=== PATIENT | female | born 1960 | race Caucasian/White ===

== ENCOUNTER 2020-06-03 10:29 | Outpatient (REF) | payer OTHER, SELFPAY ==
[2020-06-03 11:07] LABS: MANUAL DIFF FLAG NO
[2020-06-03 11:38] LABS: Anion Gap 11 (12-20); Blood Urea Nitrogen 17 mg/dL (9-16); Calcium 9.6 mg/dL (8.4-10.2); Carbon Dioxide 28 mmol/L (22-29); Chloride 106 mmol/L (96-108); Cholesterol 229 mg/dL; Estimated Glomerular Filt Rate > 60; Glucose Fasting 88 mg/dL (60-99); HDL Cholesterol 82 mg/dL; LDL Cholesterol Calculated 136 mg/dl; Sodium 141 mmol/L (135-145); Triglycerides 59 mg/dL
[2020-06-03 11:40] LABS: Basophils Percent Auto 1.4 % (0-2); Eosinophils Absolute Auto 0.1 X10*3/uL (0.0-0.4); Eosinophils Percent Auto 2.5 % (0-4); Hematocrit 38.9 % (37-47); Hemoglobin 13.2 g/dl (12.0-16.0); Lymphocytes Percent Auto 34.9 % (20-40); Mean Corpuscular HGB Conc 33.9 g/dl (31.0-35.0); Mean Corpuscular Volume 91.3 fL (80-98); Monocytes Absolute Auto 0.3 X10*3/uL (0.1-1.2); Monocytes Percent Auto 8.8 % (2-11); Neutrophils Absolute Auto 1.5 X10*3/uL (2.0-8.3); Neutrophils Percent Auto 52.4 % (45-73); Platelet Count 254 X10*3/uL (160-400); Red Blood Count 4.26 X10*6/uL (4.20-5.50); Red Cell Distribution Width 12.4 % (11.0-16.0); White Blood Count 2.8 X10*3/uL (4.8-10.8)
[2020-06-03 11:55] LABS: Thyroid Stimulating Hormone 1.37 mIU/mL (0.32-4.0); Vitamin D 25-OH Total 36.3 ng/mL (>30)
== END 2020-06-03 10:30 | disposition home or self-care (01) ==
LOC: HO.LAB 10:29
PROVIDERS: PCP Internal Medicine; Visit Provider Internal Medicine
DX: L30.9 Dermatitis, unspecified (principal); Z00.00 Encounter for general adult medical examination without abnormal findings; Z91.09 Other allergy status, other than to drugs and biological substances
CPT/HCPCS: 36415; 80048; 80061; 82306; 84443; 85025

== ENCOUNTER 2021-06-20 10:05 | Outpatient (REF) | payer OTHER, SELFPAY ==
[2021-06-20 10:17] LABS: MANUAL DIFF FLAG NO
[2021-06-20 10:45] LABS: Basophils Percent Auto 0.7 % (0-2); Eosinophils Absolute Auto 0.1 X10*3/uL (0.0-0.4); Eosinophils Percent Auto 1.7 % (0-4); Hematocrit 39.7 % (37-47); Hemoglobin 13.2 g/dl (12.0-16.0); Imm Gran Abs Auto 0.01 X10*3/uL (0.00-0.03); Imm Gran Pct Auto 0.2 % (0.0-0.4); Lymphocytes Percent Auto 24.5 % (20-40); Mean Corpuscular HGB Conc 33.2 g/dl (31.0-35.0); Mean Corpuscular Hemoglobin 30.1 pg (27.0-33.0); Mean Corpuscular Volume 90.6 fL (80-98); Mean Platelet Volume 10.4 fL (9.4-12.3); Monocytes Absolute Auto 0.2 X10*3/uL (0.1-1.2); Monocytes Percent Auto 5.9 % (2-11); Neutrophils Absolute Auto 2.7 X10*3/uL (2.0-8.3); Platelet Count 260 X10*3/uL (160-400); Red Blood Count 4.38 X10*6/uL (4.20-5.50); Red Cell Distribution Width 12.1 % (11.0-16.0)
[2021-06-20 11:00] LABS: Alanine Aminotransferase 13 U/L (0-31); Albumin Level 4.7 g/dL (3.5-5.0); Alkaline Phosphatase 54 U/L (39-117); Anion Gap 12 (12-20); Aspartate Amino Transferase 16 U/L (5-31); Bilirubin Total 1.2 mg/dL (0.0-1.0); Blood Urea Nitrogen 12 mg/dL (9-16); Carbon Dioxide 28 mmol/L (22-29); Chloride 106 mmol/L (96-108); Cholesterol 233 mg/dL; Estimated Glomerular Filt Rate > 60; Glucose Fasting 100 mg/dL (60-99); HDL Cholesterol 78 mg/dL; LDL Cholesterol Calculated 142 mg/dl; Potassium 4.2 mmol/L (3.3-5.1); Sodium 142 mmol/L (135-145); Total Protein 7.3 g/dL (6.5-8.0); Triglycerides 69 mg/dL
== END 2021-06-20 10:06 | disposition home or self-care (01) ==
LOC: HO.LAB 10:05
PROVIDERS: Visit Provider Internal Medicine
DX: Z00.00 Encounter for general adult medical examination without abnormal findings (principal); L30.9 Dermatitis, unspecified; Z91.09 Other allergy status, other than to drugs and biological substances
CPT/HCPCS: 36415; 80053; 80061; 85025

== ENCOUNTER → 2021-09-27 07:23 | Outpatient (BNVA) | payer OTHER, SELFPAY | PROVIDERS: PCP Internal Medicine; Visit Provider Physician Assistant ==

== ENCOUNTER 2021-12-25 10:30 | Day surgery (SDC) | payer OTHER, SELFPAY ==
[2021-12-20 13:37] VITALS: BMI 21.9
[2021-12-25 11:12] VITALS: BP 124/78; PULSE 68; RESP 18; TEMP 37.1; O2SAT 98
--- NOTE | 2021-12-25 11:40 | P.CONAN_ITS ---
HPI - Anesthesia Eval Consult details Narrative: 61 yo female patient for colonoscopy PMFSH Active Problems Active Problems: All Active Problems (Updated 09/27/21 @ 07:57 by Xena Ahn PA-C) Encounter for screening colonoscopy (Acute) Leucopenia (Acute) Seasonal allergies Family History Family History Father Glaucoma Macular degeneration Mother Lactose intolerance Diffuse large B cell lymphoma Follicular lymphoma Family history of problems with anesthesia: No Surgical History Surgical History H/O arthroscopic knee surgery Hx of tonsillectomy [place] teeth extracted History of Problems with Anesthesia: No Social History Social History (Updated 09/27/21 @ 08:32 by Xena Ahn PA-C) Are you a primary health care facility administrator to a significant other at home: No Alcohol intake: current Alcohol intake frequency: a few times a week Patient Tobacco Use Status: Never used Tobacco Use of substances other than those prescribed or required for medical reasons: No Are you DNR?: No Advance Directives: No Advance Directives Information Provided: Yes Recently lost weight without trying: No Current occupational status: employed 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- [employer] Allergies Allergy/AdvReac Type Severity Reaction Status Date / Time No Known Allergies Allergy Verified 09/27/21 07:47 Home Medications Medication Instructions Recorded Confirmed Last Taken Type betamethasone dipropionate 0.05 % 1 applic TOPICAL BID 07/10/20 07/10/20 Unknown History topical cream cetirizine 10 mg tablet 10 mg PO DAILY 07/10/20 07/10/20 Unknown History fluticasone propionate 50 1 spray INTRANASAL BID 07/10/20 07/10/20 Unknown History mcg/actuation nasal spray,suspension multivitamin 1 tab PO DAILY 07/10/20 07/10/20 Unknown History Exam Exam Date and Time: December 25, 2021 1140 Height,Weight and Vital Signs: Height 5 ft 5.5 in Weight 60.781 kg Last Vital Signs Temp 98.7 F 12/25/21 11:12 Pulse 68 12/25/21 11:12 Resp 18 12/25/21 11:12 BP 124/78 12/25/21 11:12 Pulse Ox 98 04/26/22 11:12 Airway Mallampati Class: I TM Dist: >3cm Neck ROM: Full Loose/Missing/Broken Teeth: Yes ([place] teeth extracted. 1 cap back intact) Heart: RRR Lungs: CTAB Assessment and Plan Assessment Anesthesia Assessment: Anesthesia Plan Discussed and Chart Reviewed Final Anesthetic Review Family History of Problems with Anesthesia: No History of Problems with Anesthesia: No NPO: Yes ASA Class: II Final Preanesthetic Review: No Changes in Pt Med Stat, Meds/Allgs Chart Reviewed, Consent Obtained/Reviewed and Anes Risks/Benef Reviewed Patient Risk: Low Procedure Risk: Low Assessment/Block/Sedation in SS: Assess/Block/Sedation-SS Anesthetic Plan Anesthetic Plan: MAC: Disposition: Standard PACU
--- NOTE | 2021-12-25 11:45 | MHC.SHP ---
Pre-Procedural Eval Section A Date of Service: 12/25/21 Section B Chief Complaint: screening Relevant Family History (Specify if Yes): No Relevant Social History: None Present Medications: see Short Stay Collaborative assessment Medical History: No relevant PMH History of Previous Operations: Relevant previous surgery/procedure and date(s) (H/O arthroscopic knee surgery Hx of tonsillectomy [place] teeth extracted) Allergies: Allergies Allergy/AdvReac Type Severity Reaction Status Date / Time No Known Allergies Allergy Verified 09/27/21 07:47 Review of Systems Sugical H&P ROS: Negative: Constitution, Cardiovascular, Respiratory, Neurological, Psychiatric, Hem-Onc, Allergic/Immunologic, Gastrointestinal, Genitourinary, Musculoskeletal, Integumentary, Endocrine and Eyes/Ears/Nose/Throat Exam Surgical H&P Exam: Normal: HEENT, Normal: Heart, Normal: Lungs, Normal: Extremities, Normal: Abdomen, Normal: Skin and Normal: Neurological Plan Diagnosis/Plan: Unchanged I have reviewed the history and physical and performed a pertinent physical examination on my patient. No changes have occurred unless specified.
--- NOTE | 2021-12-25 11:47 | PM.OP ---
Brief Operative Note Date of Service: 12/25/21 Pre-op diagnosis: screening colonoscopy Post-op diagnosis: same Procedure: see op note Surgeon: Felicia Mckeon MD Anesthesia: MAC Was an Puncher And Fastener used for this Procedure?: No Estimated blood loss (mL): 0 Condition: stable Disposition: PACU
--- NOTE | 2021-12-25 11:47 | W.PM.OPN ---
Operative Note Operative Note Date of Service: 12/25/21 Narrative: Operative Information Procedure Description: Colonoscopy Indication: screening colonoscopy Anesthesia: MAC COLONOSCOPY Instrument: Olympus variable stiffness pediatric scope 190L Colonoscopy Monitoring: Vital signs and clinical assessment, continuous EKG monitoring, Pulse oximetry, Carbon Dioxide monitoring and blood pressure monitoring were done throughout the procedure. Colon withdrawal time was 8 minutes. Procedure: The patient was placed in the left lateral decubitis position and pre-procedure medications were administered. After a digital rectal examination of the ano-rectum, the video colonoscope was inserted into the rectum and advanced through the colon to the cecum/TI. The colonoscope was slowly withdrawn in a retrograde panoramic fashion and the colon mucosa was carefully examined including a retroflexed view of the rectum. Findings and interventions are described below. Procedure Difficulty: easy Findings: Terminal Ileum-normal right sided retroflexion was normal Cecum:normal Ascending Colon: normal Transverse Colon -normal Descending Colon:normal Sigmoid Colon: normal Rectum: Retroflexion with small internal hemorrhoids, grade I, some rectal erythema probably prep artifact Anorectum - normal Colon preparation: [place] Bowel Preparation Scale Right colon; 3 Transverse colon: 3 Left colon; 3 (0 = Unprepared colon segment with mucosa not seen due to solid stool that cannot be cleared. 1 = Portion of mucosa of the colon segment seen, but other areas of the colon segment not well seen due to staining, residual stool and/or opaque liquid. 2 = Minor amount of residual staining, small fragments of stool and/or opaque liquid, but mucosa of colon segment seen well. 3 = Entire mucosa of colon segment seen well with no residual staining, small fragments of stool or opaque liquid) Impression and Post Procedure Diagnosis: internal hemorrhoids Plan: High fiber diet leaflet Avoid straining at stool, epsom salts and sitz bath, anusol supps or cream Repeat Colonoscopy in 10 years or earlier if clinically indicated Above findings were reviewed with the patient and relevant handouts were provided if indicated.
[2021-12-25] MEDS: Lactated Ringers 1,000 ML 100 ML IVCONT (11:48)
[2021-12-25 12:14] VITALS: BP 89/53; PULSE 79; RESP 16; TEMP 36.9; O2SAT 99
[2021-12-25 12:29] VITALS: BP 117/75; PULSE 63; RESP 18; TEMP 36.7; O2SAT 100
== END 2021-12-25 13:03 | disposition home or self-care (01) ==
PROVIDERS: PCP Internal Medicine; Visit Provider Internal Medicine Gastroenterology
PROC: 0DJD8ZZ Inspection of Lower Intestinal Tract, Via Natural or Artificial Opening Endoscopic (ICD-10-PCS; CPT 45378; principal; 2021-12-25 11:40)
DX: Z12.11 Encounter for screening for malignant neoplasm of colon (principal); Z80.0 Family history of malignant neoplasm of digestive organs; K64.0 First degree hemorrhoids; J30.2 Other seasonal allergic rhinitis; Z79.51 Long term (current) use of inhaled steroids; Z79.899 Other long term (current) drug therapy
CPT/HCPCS: 45378

== ENCOUNTER → 2022-01-29 11:59 | Outpatient (BNVA) | payer OTHER, SELFPAY | PROVIDERS: PCP Internal Medicine; Referring Provider Internal Medicine; Visit Provider Physician Assistant | DX: K64.9 Unspecified hemorrhoids (principal) ==

== ENCOUNTER 2022-06-19 13:39 | Outpatient (REF) | payer OTHER, SELFPAY ==
[2022-06-19 13:53] LABS: MANUAL DIFF FLAG NO
[2022-06-19 14:41] LABS: Basophils Percent Auto 0.7 % (0-2); Eosinophils Absolute Auto 0.1 X10*3/uL (0.0-0.4); Eosinophils Percent Auto 1.8 % (0-4); Hematocrit 36.2 % (37.0-47.0); Hemoglobin 12.3 g/dl (12.0-16.0); Imm Gran Abs Auto 0.01 X10*3/uL (0.00-0.03); Imm Gran Pct Auto 0.2 % (0.0-0.4); Lymphocytes Absolute Auto 1.5 X10*3/uL (1.2-4.9); Lymphocytes Percent Auto 34.7 % (20-40); Mean Corpuscular Hemoglobin 30.4 pg (27.0-33.0); Mean Corpuscular Volume 89.6 fL (80.0-98.0); Mean Platelet Volume 10.8 fL (9.4-12.3); Monocytes Absolute Auto 0.3 X10*3/uL (0.1-1.2); Monocytes Percent Auto 7.3 % (2-11); Neutrophils Absolute Auto 2.4 x10*3/uL (2.0-8.3); Neutrophils Percent Auto 55.3 % (45-73); Platelet Count 252 X10*3/uL (160-400); Red Blood Count 4.04 X10*6/uL (4.20-5.50); Red Cell Distribution Width 12.4 % (11.0-16.0); White Blood Count 4.4 X10*3/uL (4.8-10.8)
[2022-06-19 15:11] LABS: Alanine Aminotransferase 14 U/L (0-31); Albumin Level 4.5 g/dL (3.5-5.0); Alkaline Phosphatase 51 U/L (39-117); Anion Gap 15 (12-20); Aspartate Amino Transferase 16 U/L (5-31); Bilirubin Total 0.9 mg/dL (0.0-1.0); Blood Urea Nitrogen 15 mg/dL (9-16); Calcium 9.6 mg/dL (8.4-10.2); Carbon Dioxide 26 mmol/L (22-29); Chloride 105 mmol/L (96-108); Cholesterol 211 mg/dL; Estimated Glomerular Filt Rate > 60; Glucose Fasting 79 mg/dL (60-99); HDL Cholesterol 72 mg/dL; LDL Cholesterol Calculated 131 mg/dl; Potassium 3.9 mmol/L (3.3-5.1); Sodium 142 mmol/L (135-145); Total Protein 6.8 g/dL (6.5-8.0); Triglycerides 44 mg/dL
[2022-06-19 15:33] LABS: Thyroid Stimulating Hormone 1.44 uIU/mL (0.32-4.0); Vitamin D 25-OH Total 34.9 ng/mL (>30)
== END 2022-06-19 13:40 | disposition home or self-care (01) ==
LOC: HO.LAB 13:39
PROVIDERS: PCP Internal Medicine; Visit Provider Internal Medicine
DX: Z00.00 Encounter for general adult medical examination without abnormal findings (principal); L30.9 Dermatitis, unspecified; Z91.09 Other allergy status, other than to drugs and biological substances
CPT/HCPCS: 36415; 80053; 80061; 82306; 84443; 85025

== ENCOUNTER 2023-07-09 06:47 | Outpatient (REF) | payer OTHER, SELFPAY ==
[2023-07-09 06:58] LABS: MANUAL DIFF FLAG NO
[2023-07-09 07:35] LABS: Basophils Absolute Auto 0.1 X10*3/uL (0.0-0.2); Basophils Percent Auto 1.5 % (0-2); Eosinophils Absolute Auto 0.2 X10*3/uL (0.0-0.4); Eosinophils Percent Auto 3.7 % (0-4); Hematocrit 41.4 % (37.0-47.0); Hemoglobin 13.9 g/dl (12.0-16.0); Imm Gran Abs Auto 0.01 X10*3/uL (0.00-0.03); Imm Gran Pct Auto 0.2 % (0.0-0.4); Lymphocytes Absolute Auto 1.4 X10*3/uL (1.2-4.9); Lymphocytes Percent Auto 33.6 % (20-40); Mean Corpuscular HGB Conc 33.6 g/dl (31.0-35.0); Mean Corpuscular Hemoglobin 31.1 pg (27.0-33.0); Mean Corpuscular Volume 92.6 fL (80.0-98.0); Mean Platelet Volume 10.4 fL (9.4-12.3); Monocytes Absolute Auto 0.3 X10*3/uL (0.1-1.2); Monocytes Percent Auto 7.9 % (2-11); Neutrophils Absolute Auto 2.2 x10*3/uL (2.0-8.3); Neutrophils Percent Auto 53.1 % (45-73); Platelet Count 251 X10*3/uL (160-400); Red Blood Count 4.47 X10*6/uL (4.20-5.50); Red Cell Distribution Width 12.1 % (11.0-16.0); White Blood Count 4.1 X10*3/uL (4.8-10.8)
[2023-07-09 08:00] LABS: Alanine Aminotransferase 18 U/L (0-31); Albumin Level 4.4 g/dL (3.5-5.0); Alkaline Phosphatase 55 U/L (39-117); Anion Gap 12 (12-20); Aspartate Amino Transferase 20 U/L (5-31); Bilirubin Total 0.7 mg/dL (0.0-1.0); Blood Urea Nitrogen 17 mg/dL (9-16); Calcium 9.6 mg/dL (8.4-10.2); Carbon Dioxide 28 mmol/L (22-29); Chloride 106 mmol/L (96-108); Cholesterol 264 mg/dL (<200); Estimated Glomerular Filt Rate > 60; Glucose Fasting 90 mg/dL (60-99); HDL Cholesterol 79 mg/dL (>40); LDL Cholesterol Calculated 170 mg/dL (<100); Potassium 3.8 mmol/L (3.3-5.1); Sodium 142 mmol/L (135-145); Total Protein 7.4 g/dL (6.5-8.0); Triglycerides 79 mg/dL (<150)
== END 2023-07-09 06:48 | disposition home or self-care (01) ==
LOC: HO.LAB 06:47
PROVIDERS: PCP Internal Medicine; Visit Provider Internal Medicine
DX: Z00.00 Encounter for general adult medical examination without abnormal findings (principal); E78.00 Pure hypercholesterolemia, unspecified; L30.9 Dermatitis, unspecified; Z91.09 Other allergy status, other than to drugs and biological substances
CPT/HCPCS: 36415; 80053; 80061; 85025

== ENCOUNTER → 2024-04-27 14:31 | Outpatient (RCR) | payer OTHER, SELFPAY ==
[2020-07-10 11:15] VITALS: BMI 23.3
[2020-07-10 11:16] VITALS: BP 131/76; PULSE 73; RESP 12; TEMP 37.2; O2SAT 99; BMI 23.3
--- NOTE | 2020-07-10 11:29 | P.CNHO_ITS ---
Subjective - Subjective Chief complaint: Low blood count Patient: new to practice Consult date: 07/10/20 Primary Care Provider: Chris Luevano MD, DO HPI - Consult Narrative Reason for consult: Leukopenia Narrative: Carolyn Bose I is a 59 year old female referred for evaluation of leukopenia on routine blood work. Her total white count in June 2020 was about 2.8 K. in 2017 it ranged between 3 -5.4k. No anemia or thrombocytopenia. She denies any constitutional symptoms such as fever, chills or unexplained weight loss. She suffers from chronic postmenopausal symptoms of hot flashes and night sweats. She has not been started on any new medications. She denies any recent infections. Her last significant infection was around October of this year when she had fever and chills with upper respiratory symptoms. She was never tested for COVID-19. She drinks alcohol 2 to 3 times a week. She gives no history of recurrent infections such as pneumonia, UTIs or sepsis. Review of Systems - Constitutional Reports no additional constitutional complaints - Cardiovascular Reports no additional cardiovascular complaints - Respiratory Reports no additional respiratory complaints - Gastrointestinal Reports no additional gastrointestinal complaints Oncology Screenings - ECOG Performance Status ECOG Performance Status: 0 PMFSH Family History: Family History (Last Updated 07/10/20 @ 09:00 by Lilia Brown RN) Father Glaucoma Macular degeneration Mother Lactose intolerance Diffuse large B cell lymphoma Follicular lymphoma Surgical History: Surgical History (Last Updated 07/10/20 @ 09:01 by Lilia Brown RN) H/O arthroscopic knee surgery Hx of tonsillectomy [place] teeth extracted Smoking status: Never smoker Home Medications and Allergies Home Medications Medication Instructions Recorded Confirmed Type betamethasone dipropionate 1 applic TOPICAL BID 07/10/20 07/10/20 History [Diprolene] cetirizine 10 mg PO DAILY 07/10/20 07/10/20 History fluticasone propionate [Flonase] 1 spray INTRANASAL BID 07/10/20 07/10/20 History multivitamin 1 tab PO DAILY 07/10/20 07/10/20 History Allergies Allergy/AdvReac Type Severity Reaction Status Date / Time No Known Allergies Allergy Unverified 05/18/20 15:06 N.K.D.A. Allergy Unknown Uncoded 03/02/18 00:00 Physical Exam Vital signs: Vital Signs Temp 98.9 F 07/10/20 11:16 Pulse 73 07/10/20 11:16 Resp 12 07/10/20 11:16 BP 131/76 07/10/20 11:16 Pulse Ox 99 07/10/20 11:16 Intake & Output 07/09/20 07/10/20 07/10/20 18:59 06:59 18:59 Other: Weight 63.5 kg Weight 63.5 kg - Constitutional Present: no acute distress - Routine HEENT Exam Head: Present: normal inspection Eye: Present: EOMI - Routine Neck Exam Present: supple, full ROM. Absent: JVD, lymphadenopathy - Routine Respiratory Exam Present: CTAB - Routine Cardiovascular Exam Cardiovascular: Present: RRR, S1, S2 - Routine Abdominal Exam Present: soft. Absent: organomegaly - Routine Extremities Exam Present: full ROM. Absent: joint swelling - Routine Skin Exam Present: intact. Absent: cyanosis, erythema - Routine Neurological Exam Present: oriented X3. Absent: sensory deficit, motor deficit Hem/Onc Consult Result - Labs CBC & Chem 7: 07/10/20 11:57 Assessment and Plan (1) Leucopenia Status: Acute This is a 59-year-old woman with mild chronic leukopenia. She has total WBC count usually in the 4-5 K range. In June the total white count had gone down to 2.8 K with lymphopenia and mild neutropenia. No abnormal cells on the differential. No anemia or thrombocytopenia. CBC today shows a total WBC count of 4.3 K which is closer to her usual blood counts. She is asymptomatic. No evidence of infection, medication induced cytopenia, alcoholism or liver disease. Since she had upper respiratory symptoms earlier in the year, I have added COVID-19 antibody test. Other causes such as hematinic deficiencies, plasma cell dyscrasia, CCUS (clonal cytopenia of undetermined significance), MDS have to be ruled out. Blood work has been submitted. I have discussed this with the patient, she will return in 1 month to go over results of blood tests. I thank you very much for this referral.
[2020-07-10 12:14] LABS: Baso%MD 0.9 %; Eos%MD 2.1 %; Hematocrit 38.9 % (37-47); Hemoglobin 13.1 g/dl (12.0-16.0); IG%MD 0.2 %; Immature Retic Fraction 5.5 % (3.0-15.9); Lymph%MD 25.5 %; Mean Corpuscular HGB Conc 33.7 g/dl (31.0-35.0); Mean Corpuscular Hemoglobin 30.9 pg (27.0-33.0); Mean Corpuscular Volume 91.7 fL (80-98); Mean Platelet Volume 10.1 fL (9.4-12.3); Mono%MD 6.6 %; Neut%MD 64.7 %; Platelet Count 247 X10*3/uL (160-400); Red Blood Count 4.24 X10*6/uL (4.20-5.50); Retic HGB Equivalent 34.6 pg (30.0-35.0); Reticulocyte Percent 1.2 % (0.5-1.8); Reticulocytes Absolute 0.049 X10*6/uL (0.026-0.095); White Blood Count 4.3 X10*3/uL (4.8-10.8)
[2020-07-10 12:43] LABS: Alanine Aminotransferase 22 U/L (0-31); Albumin Level 4.6 g/dL (3.5-5.0); Alkaline Phosphatase 54 U/L (39-117); Aspartate Amino Transferase 18 U/L (5-31); Bilirubin Direct 0.2 mg/dL (0.0-0.5); Bilirubin Total 0.3 mg/dL (0.0-1.0); Lactate Dehydrogenase 165 U/L (122-220)
[2020-07-10 13:00] LABS: SARS COV2 IgG Negative (Negative)
[2020-07-10 13:31] LABS: Folate 19.1 ng/mL (> or = 4.0); Vitamin B12 434 pg/mL (200-900)
[2020-07-10 15:11] LABS: Basophils Abs Manual 0.2 X10*3/uL (0.0-0.3); Basophils Percent Manual 5 % (0-1); Eosinophils Percent Manual 1 % (0-4); Lymphocytes Absolute Manual 1.1 X10*3/uL (0.6-4.8); Lymphocytes Percent Manual 25 % (20-40); Monocytes Absolute Manual 0.1 X10*3/uL (0.0-1.2); Monocytes Percent Manual 3 % (2-11); Neutrophils Percent Manual 66 % (45-73); Platelet Estimate NORMAL (NORMAL)
[2020-07-10 15:12] LABS: Platelet Morphology Comment NORMAL; RBC Morphology NORMAL
[2020-07-10 15:28] LABS: Band Neutrophils Percent 0 % (3-5); Neutrophils Absolute Manual 2.8 X10*3/uL (2.2-7.9)
[2020-07-11 15:27] LABS: Prot Elec - Albumin 4.5 g/dL (3.8-4.8); Prot Elec - Alpha1 0.2 g/dL (0.2-0.3); Prot Elec - Alpha2 0.6 g/dL (0.5-0.9); Prot Elec - Beta 1 0.4 g/dL (0.4-0.6); Prot Elec - Beta 2 0.3 g/dL (0.2-0.5); Prot Elec - Gamma 0.9 g/dL (0.8-1.7); Prot Elec - Total Protein 6.9 g/dL (6.1-8.1)
[2020-07-12 11:08] LABS: IgA 167 mg/dL (47-310); IgG 971 mg/dL (600-1640); IgM 67 mg/dL (50-300)
== END | disposition home or self-care (01) ==
LOC: HO.ONC 07-10 10:51
PROVIDERS: PCP Internal Medicine; Referring Provider Internal Medicine; Visit Provider Internal Medicine
DX: D72.819 Decreased white blood cell count, unspecified (principal); Z01.84 Encounter for antibody response examination
CPT/HCPCS: 36415; 80076; 82607; 82746; 82784; 83615; 84155; 84165; 85007; 85027; 85045; 86334; 86769; 99204

== ENCOUNTER 2024-06-26 10:00 | Outpatient (REF) | payer OTHER, SELFPAY ==
[2024-06-26 10:29] LABS: MANUAL DIFF FLAG NO
[2024-06-26 11:41] LABS: Basophils Percent Auto 1.3 % (0-2); Eosinophils Absolute Auto 0.1 X10*3/uL (0.0-0.4); Eosinophils Percent Auto 4.3 % (0-4); Hematocrit 39.2 % (37.0-47.0); Hemoglobin 13.1 g/dl (12.0-16.0); Imm Gran Abs Auto 0.01 X10*3/uL (0.00-0.03); Imm Gran Pct Auto 0.3 % (0.0-0.4); Lymphocytes Absolute Auto 1.1 X10*3/uL (1.2-4.9); Lymphocytes Percent Auto 35.3 % (20-40); Mean Corpuscular HGB Conc 33.4 g/dl (31.0-35.0); Mean Corpuscular Hemoglobin 30.8 pg (27.0-33.0); Mean Corpuscular Volume 92.2 fL (80.0-98.0); Mean Platelet Volume 10.9 fL (9.4-12.3); Monocytes Absolute Auto 0.3 X10*3/uL (0.1-1.2); Monocytes Percent Auto 8.3 % (2-11); Neutrophils Absolute Auto 1.5 x10*3/uL (2.0-8.3); Neutrophils Percent Auto 50.5 % (45-73); Platelet Count 238 X10*3/uL (160-400); Red Blood Count 4.25 X10*6/uL (4.20-5.50); Red Cell Distribution Width 12.3 % (11.0-16.0)
[2024-06-26 12:03] LABS: Alanine Aminotransferase 19 U/L (0-31); Albumin Level 4.1 g/dL (3.5-5.0); Alkaline Phosphatase 54 U/L (39-117); Anion Gap 11 (12-20); Aspartate Amino Transferase 16 U/L (5-31); Bilirubin Total 0.7 mg/dL (0.0-1.0); Blood Urea Nitrogen 19 mg/dL (9-16); Calcium 9.4 mg/dL (8.4-10.2); Carbon Dioxide 27 mmol/L (22-29); Chloride 108 mmol/L (96-108); Cholesterol 214 mg/dL (<200); Estimated Glomerular Filt Rate > 60; Glucose Random 98 mg/dL (60-115); HDL Cholesterol 78 mg/dL (>40); LDL Cholesterol Calculated 124 mg/dL (<100); Potassium 4.1 mmol/L (3.3-5.1); Sodium 142 mmol/L (135-145); Total Protein 6.7 g/dL (6.5-8.0); Triglycerides 63 mg/dL (<150)
[2024-06-26 12:04] LABS: Thyroid Stimulating Hormone 1.23 uIU/mL (0.32-4.0); Vitamin D 25-OH Total 51.1 ng/mL (>30)
== END 2024-06-26 10:01 | disposition home or self-care (01) ==
LOC: HO.LAB 10:00
PROVIDERS: PCP Internal Medicine; Visit Provider Internal Medicine
DX: Z00.00 Encounter for general adult medical examination without abnormal findings (principal); Z91.09 Other allergy status, other than to drugs and biological substances; E78.00 Pure hypercholesterolemia, unspecified; L30.9 Dermatitis, unspecified
CPT/HCPCS: 36415; 80053; 80061; 82306; 84443; 85025

== ENCOUNTER 2025-06-28 09:00 | Outpatient (AMB) | payer OTHER, SELFPAY ==
--- NOTE | 2025-06-28 09:04 | A.OFFPC_ITS ---
Vital Signs 06/28/25 09:06 Height 5 ft 4.57 in Weight 132 lb BMI 22.3 BP 115/64 Blood Pressure Location Lt brachial Position Sitting Respiration 14 Pulse 72 Pulse Source Pulse Oximeter Temp 97.2 F Temp Source Temporal Artery Scan Pulse Oximetry (%) 99 Oxygen Delivery Method Room Air Intake Visit Reasons: physical Appliance Service Representative Required: No Accompanied by: Self / Same As Patient Allergies No Known Allergies Allergy (Verified 06/28/25 09:21) Medication List - Last Reconciled 06/28/25 by Shiv Khanna MD No Known Home Meds Tobacco use date assessed: 06/28/25 Dental Screening Dental Screen Date: 06/28/25 Did you have a dental visit in the last 12 months?: Yes Did you have a dental problem in the last 6 months where you did not have access to dental care?: No Was dental information given to patient?: Patient has dentist [facility] Surgical History Hx of colonoscopy (~12/25/21) H/O arthroscopic knee surgery [place] teeth extracted Hx of tonsillectomy Family History Father Glaucoma Macular degeneration Mother Lactose intolerance Diffuse large B cell lymphoma Follicular lymphoma Social History (Updated 06/28/25 @ 09:10 by FIORELLA Burnette) Housing: House Are you a primary career information specialist to a significant other at home: No Alcohol intake: current Alcohol intake frequency: a few times a week Patient Tobacco Use Status: Never used Tobacco service: No Current occupational status: employed Cognitive needs: No Hearing needs: No Vision needs: Yes (reading glasses) Questionnaire PHQ-9 Over the last 2 weeks, how often have you been bothered by any of the following problems? 1. Little interest or pleasure in doing things: not at all 2. Feeling down, depressed, or hopeless: not at all 3. Trouble falling or staying asleep, or sleeping too much: not at all 4. Feeling tired or having little energy: not at all 5. Poor appetite or overeating: not at all 6. Feeling bad about yourself - or that you are a failure or have let yourself or your family down: not at all 7. Trouble concentrating on things, such as reading the newspaper or watching television: not at all 8. Moving or speaking so slowly that other people could have noticed. Or the opposite - being so fidgety or restless that you have been moving around a lot more than usual: not at all 9. Thoughts that you would be better off or of hurting yourself in some way: not at all Total score: 0 Source: Developed by Drs. Chris Saleh, Lizzy Sparks, Bradly Chatman and colleagues, with an educational amelie from [employer]. Thrive Questionnaire Date Thrive assessed: 06/28/25 I am a: Patient What is your living situation today?: I have a steady place to live Within the past 12 months, did the food you bought not last and you didn't have the money to get more?: Never true Within the past 12 months, did you worry whether your food would run out before you got money to buy more?: Never true Do you have trouble paying for medicines?: No Do you have trouble getting transportation to medical appointments?: No Do you have trouble paying your heating and electricity bill?: No Do you have trouble taking care of your child, family member or friend?: No Do you have trouble with day-to-day activities such as bathing, preparing meals, shopping, managing finances, etc.?: No Are you currently unemployed and looking for a job?: No Are you interested in more education?: No Please select the resources that you would like help with: None THRIVE Score: 0 AUDIT C Alcohol Use Questionnaire (AUDIT-C) 1. How often do you have a drink containing alcohol?: 2-3 times a week 2. How many drinks containing alcohol do you have on a typical day when you are drinking?: 1 or 2 3. How often do you have six or more drinks on one occasion?: Never Total Score: 3 DEBBY-7 AMB Questionnaire DEBBY-7 Date DEBBY - 7 assessed: 06/28/25 Feeling nervous, anxious, or on edge: 0 = Not at all Not being able to stop or control worryin = Not at all Worrying too much about different things: 0 = Not at all Trouble relaxin = Not at all Being so restless that it is hard to sit still: 0 = Not at all Becoming easily annoyed or irritable: 0 = Not at all Feeling afraid as if something awful might happen: 0 = Not at all Total DEBBY-7 score (0-4 normal; 5-9 mild; 10-14 moderate; 15-21 severe): 0 Source: Developed by Drs. Chris Saleh, Lizzy Sparks, Bradly Chatman and colleagues, with an educational amelie from [employer]. Physical exam (Primary Care) Vital Signs: Last Vital Signs Temp 97.2 F 06/28/25 09:06 Pulse 72 06/28/25 09:06 Resp 14 06/28/25 09:06 BP 115/64 06/28/25 09:06 Pulse Ox 99 06/28/25 09:06 Oxygen Delivery Method Room Air 06/28/25 09:06 BMI result Body Mass Index 22.3 Tobacco/Smoking Status: Tobacco use Status Tobacco use date assessed 06/28/25 06/28/25 09:05 Patient Tobacco Use Status Never used Tobacco 06/28/25 09:10 PHQ-9: PHQ-9 Score PHQ-9: Total score 0 06/28/25 09:05 Thrive Assessment: Date of Thrive Assessment Date Thrive assessed 06/28/25 06/28/25 09:05 Office Procedures Flu Questionnaire Does the patient have a severe egg allergy?: No Does the patient have severe life threatening allergies?: No Does the patient have a fever or illness today?: No Has the patient ever had Guillain-[place] Syndrome?: No Has the patient ever had any past reaction to a flu shot?: No Immunizations Fluarix [id number] (PF) 45 mcg (15 mcg x 3)/0.5 mL IM syringe Performing Provider: Shiv Khanna MD [facility] Documented (not given) by: FIORELLA Burnette on 06/28/25 09:11 Reason Not Given: Received Previously Coding Level of Care Code New Pt Prev Care 40-64y(90454) Diagnoses Annual physical exam Z00.00 Assessment & Plan Assessment & Plan (1) Annual physical exam: Code(s): Z00.00 - Encounter for general adult medical examination without abnormal findings Plan: History of Present Illness - The patient is a 64-year-old female presenting with a wellness check-up and management of osteoporosis. - Osteoporosis was identified on a recent bone density scan conducted on May 10. 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 - She denies feeling any symptoms associated with osteoporosis. - Preventative care measures include regular mammograms, Pap smears, colonoscopies, and flu vaccinations, all of which are up to date. - The patient takes [id number] allergy medication and supplements but no prescription medications. 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 - Exercise: Engages in regular physical activity through her occupation. Review of Systems - General: Denies any health concerns. - Musculoskeletal: Denies symptoms of osteoporosis. - Ophthalmologic: Uses reading glasses, denies halos or vision problems while driving at night. - Auditory: Reports hearing is adequate for conversations and phone use. - Genitourinary: Denies urinary incontinence. - Sleep: Reports occasional disturbances due to pets. Physical Exam General: Cooperative and healthy appearing Nutritional Appearance: Well nourished Orientation/consciousness: Patient oriented x3 Limitations: No limitations Head: Normal to inspection General: Appearance normal, both eyes and all related structures Neck: Normal visual inspection Chest: Normal palpation of entire chest wall Respiratory: Take deep breaths ormal respiratory effort Neurology: Patient oriented x3 Results - Bone Density Scan: Osteoporosis identified on May 10. Plan - Order fasting blood work including white blood cell count, red blood cell count, hemoglobin, platelets, electrolytes, kidney function, liver function, cholesterol, and thyroid levels. - Continue regular mammograms, Pap smears, colonoscopies, and flu vaccinations as part of preventative care. - Encourage continued physical activity to manage osteoporosis. Discussion Notes I discussed with the patient the importance of continuing regular screenings such as mammograms, Pap smears, and colonoscopies. We also talked about the need for fasting blood work to monitor various health parameters. I emphasized the role of physical activity in managing osteoporosis and encouraged her to maintain her current level of exercise. The patient was advised to continue her preventative care measures, including flu vaccinations. Patient Instructions - Schedule and complete fasting blood work as ordered. - Continue regular screenings: mammograms, Pap smears, and colonoscopies. - Maintain regular physical activity to help manage osteoporosis. - Keep up with annual flu vaccinations. Orders: Orders Influenza [id number] Immunization Today Z23 - Encounter for immunization Basic Metabolic Panel Today D72.819 - Decreased white blood cell count, unspecified Lipid Panel Today D7.819 - Decreased white blood cell count, unspecified Thyroid Stimulating Hormone Today D7.819 - Decreased white blood cell count, unspecified UA and rflx microscopic Today D7.819 - Decreased white blood cell count, unspecified Complete Blood Count no Diff Today D7.819 - Decreased white blood cell count, unspecified Liver Panel Today D7.819 - Decreased white blood cell count, unspecified
[2025-06-28 09:06] VITALS: BP 115/64; PULSE 72; RESP 14; TEMP 36.2; O2SAT 99; BMI 22.3
== END 2025-06-28 09:25 | disposition home or self-care (01) ==
LOC: HO.HMCSH 09:00
PROVIDERS: PCP Internal Medicine; Visit Provider Internal Medicine
DX: Z23 Encounter for immunization (principal); Z00.00 Encounter for general adult medical examination without abnormal findings

== ENCOUNTER → 2025-06-28 09:00 | Outpatient (BNVA) | payer OTHER, SELFPAY | PROVIDERS: PCP Internal Medicine; Visit Provider Internal Medicine | DX: Z00.00 Encounter for general adult medical examination without abnormal findings (principal); D72.819 Decreased white blood cell count, unspecified; Z28.89 Immunization not carried out for other reason | CPT/HCPCS: 90471; 96127 ==

== ENCOUNTER 2025-07-05 07:13 | Outpatient (REF) | payer OTHER, SELFPAY ==
[2025-07-05 07:59] LABS: Hematocrit 38.6 % (37.0-47.0); Hemoglobin 12.9 g/dl (12.0-16.0); Mean Corpuscular HGB Conc 33.4 g/dl (31.0-35.0); Mean Corpuscular Hemoglobin 30.6 pg (27.0-33.0); Mean Corpuscular Volume 91.7 fL (80.0-98.0); NRBC Abs Auto 0.000 X10*3/uL (0.0-0.012); NRBC Pct Auto 0.0 /100WBC (0.0-0.2); Platelet Count 226 X10*3/uL (160-400); Red Blood Count 4.21 X10*6/uL (4.20-5.50); White Blood Count 3.2 X10*3/uL (4.8-10.8)
[2025-07-05 08:33] LABS: Alanine Aminotransferase 18 U/L (0-31); Albumin Level 4.4 g/dL (3.5-5.0); Alkaline Phosphatase 57 U/L (39-117); Anion Gap 10 (12-20); Aspartate Amino Transferase 18 U/L (5-31); Blood Urea Nitrogen 16 mg/dL (9-16); Calcium 9.2 mg/dL (8.4-10.2); Carbon Dioxide 28 mmol/L (22-29); Chloride 109 mmol/L (96-108); Cholesterol 235 mg/dL (<200); Estimated Glomerular Filt Rate > 60; HDL Cholesterol 73 mg/dL (>40); Potassium 4.0 mmol/L (3.3-5.1); Sodium 143 mmol/L (135-145); Total Protein 6.9 g/dL (6.5-8.0); Triglycerides 75 mg/dL (<150)
[2025-07-05 09:02] LABS: Thyroid Stimulating Hormone 2.88 uIU/mL (0.32-4.0)
[2025-07-05 17:26] LABS: Appearance Urine Clear; Glucose Urine UA Negative (Negative); PH 7.5 (5.0-9.0); Specific Gravity - Urine 1.025 (1.005-1.025)
== END 2025-07-05 07:14 | disposition home or self-care (01) ==
LOC: HO.LAB 07:13
PROVIDERS: PCP Internal Medicine; Visit Provider Internal Medicine
DX: D72.819 Decreased white blood cell count, unspecified (principal); Z13.29 Encounter for screening for other suspected endocrine disorder; Z13.6 Encounter for screening for cardiovascular disorders
CPT/HCPCS: 36415; 80048; 80061; 80076; 81003; 84443; 85027